=== PATIENT | female | born 1960 | race Caucasian/White ===

== ENCOUNTER 2017-04-17 16:56 | Inpatient (IN) | payer OTHER ==
[~2017-04-17] VITALS: Ht 162.6 cm; Wt 67.5 kg
[~2017-04-17 16:56] MED LIST: CLEOCIN HC150 MG/CAP PO; FENTANYL 50MCG TOP; LORTAB 7.5/5001 TAB PO; PEPCID 20MG TAB20 MG PO; PREDNISONE20 MG PO
[2017-04-19 08:53] VITALS: BP 122/73; PULSE 68; TEMP 98.5
[2017-04-19] MEDS ORDERED: XARELTO20 MG PO (09:24)
[2017-04-19] MEDS ORDERED: TAMBOCOR150 MG PO (09:25)
[2017-04-19] MEDS ORDERED: TOPROL XL 25MG25 MG PO (09:26)
[2017-04-19] MEDS ORDERED: RESTORIL30 MG PO (09:27)
[2017-04-19] MEDS ORDERED: NORCO 325 MG-7.1 TAB PO (09:30)
[2017-04-19 09:53] LABS: BASO % 0.5 % (0.0-2.0); EOS % 0.6 % (0-4.0); GRAN # 3.8 (1.4-6.5); GRAN % 60.7 % (42.2-75.2); HEMATOCRIT 40.8 % (37.0-47.0); HEMOGLOBIN 13.4 g/dl (12.5-16.0); LYMPH # 1.9 (1.2-3.4); LYMPH % 30.6 % (20.0-51.0); MEAN CELL VOLUME 88 fl (80.0-100.0); MEAN CORPUSCULAR HEMOGLOBIN 29 pg (27.0-31.0); MEAN CORPUSCULAR HGB CONC 33 g/dl (33.0-37.0); MONO # 0.5 (0.1-0.6); MONO % 7.3 % (1.7-9.3); PLATELET COUNT 372 K/mm3 (130-400); RED BLOOD COUNT 4.65 M/mm3 (4.10-5.30); WHITE BLOOD COUNT 6.3 K/mm3 (4.8-10.8)
[2017-04-19 09:57] LABS: PROTHROMBIN TIME 11.3 SECONDS (9.7-12.8)
[2017-04-19 10:00] LABS: ADJUSTED CALCIUM 9.4 mg/dL (8.4-10.2); ALBUMIN 4.5 gm/dL (3.5-5.0); BILIRUBIN,TOTAL 0.6 mg/dL (0.0-1.0); CALCIUM 9.8 mg/dL (8.4-10.2); CREATININE, serum 0.79 mg/dL (0.52-1.25); MAGNESIUM 1.8 mg/dL (1.6-2.3); POTASSIUM 4.1 mmol/L (3.4-5.0); TOTAL PROTEIN 7.9 gm/dL (6.4-8.2)
[2017-04-19 12:02] VITALS: BP 132/72; PULSE 66; TEMP 97.4
[2017-04-19 16:13] VITALS: BP 125/71; PULSE 98; TEMP 97.7
[2017-04-19 19:45] VITALS: BP 112/62; PULSE 63; TEMP 97.8
[2017-04-19 23:38] VITALS: BP 100/55; PULSE 54; TEMP 97.6
[2017-04-20 03:14] VITALS: BP 103/54; PULSE 54; TEMP 97.9
[2017-04-20 07:30] VITALS: BP 112/60; PULSE 53; TEMP 98.3
[2017-04-20 08:23] LABS: INR 1.1 (0.8-3.0)
[2017-04-20 08:31] LABS: CALCIUM 9.4 mg/dL (8.4-10.2); CREATININE, serum 0.79 mg/dL (0.52-1.25)
[2017-04-20 11:32] VITALS: BP 98/63; PULSE 56; TEMP 98
[2017-04-20 17:06] VITALS: BP 108/60; PULSE 61; TEMP 98.5
[2017-04-20 20:09] VITALS: BP 110/61; PULSE 57; TEMP 98
[2017-04-21 00:18] VITALS: BP 96/50; PULSE 56; TEMP 97.8
[2017-04-21 03:44] VITALS: BP 105/54; PULSE 62; TEMP 97.6
[2017-04-21 06:50] LABS: INR 1.1 (0.8-3.0); PROTHROMBIN TIME 12.6 SECONDS (9.7-12.8)
[2017-04-21 07:06] LABS: CALCIUM 9.3 mg/dL (8.4-10.2); CREATININE, serum 0.92 mg/dL (0.52-1.25); POTASSIUM 4.2 mmol/L (3.4-5.0)
[2017-04-21 08:14] VITALS: BP 111/71; PULSE 101
[2017-04-21 10:24] VITALS: BP 130/85; PULSE 102
[2017-04-21 11:05] VITALS: BP 105/58; PULSE 55; TEMP 97.9
[2017-04-21] MEDS ORDERED: BETAPACE 120MG120 MG PO (14:15)
[2017-04-21] MEDS ORDERED: BETAPACE 80MG80 MG PO (14:16)
== END 2017-04-21 14:35 | disposition home or self-care (01) | DRG 310 ==
LOC: MEDICAL 04-19 08:07
PROVIDERS: Internal Medicine Cardiovascular Disease
DX: I48.0 Paroxysmal atrial fibrillation (principal); Z87.891 Personal history of nicotine dependence